=== PATIENT | male | born 1995 | race Two or more races ===

== ENCOUNTER 2020-08-25 11:12 | Emergency (ER) | payer SELFPAY ==
--- NOTE | 2020-08-25 11:52 | EDM.PDOC ---
ED HPI GENERAL MEDICAL PROBLEM - General Chief Complaint: Abdominal Pain Stated Complaint: ABDOMINAL PAIN Time Seen by Provider: 08/25/20 11:32 Source of Information: Reports: Patient, RN Notes Reviewed History Limitations: Reports: No Limitations - History of Present Illness INITIAL COMMENTS - FREE TEXT/NARRATIVE: Patient is a 25-year-old male who presents to the ER for evaluation of his abdomen pain. Notes that this started around 5 AM this morning after he woke up.. He is not really sure if he had a fever. The pain was in his lower abdomen this morning, but now has worked up to his right upper quadrant. States that the pain was kind of intermittent, and is better now. But he did take some ibuprofen before coming here. He states that he has had 5 episodes of diarrhea this morning, but has had no nausea or vomiting, he is also had no dysuria, frequency or urgency. He is not had pain like this before ever. He has had no abdomen surgeries, takes no daily medications, and notes that he is a fairly healthy gentleman. He also states that he has no primary care provider. Abdominal Pain Score (Numeric/FACES): 2 - Related Data Allergies Allergy/AdvReac Type Severity Reaction Status Date / Time No Known Allergies Allergy Verified 08/25/20 11:32 Home Meds: Home Meds . [No Known Home Meds] 08/25/20 [History] Past Medical History - Past Health History Medical/Surgical History: Denies Medical/Surgical History - Infectious Disease History Infectious Disease History: Reports: Novel Coronavirus Social & Family History - Tobacco Use Tobacco Use Status *Q: Never Tobacco User Second Hand Smoke Exposure: No - Caffeine Use Caffeine Use: Reports: Coffee, Soda - Alcohol Use Days Per Week of Alcohol Use: 1 Number of Drinks Per Day: 1 Total Drinks Per Week: 1 - Recreational Drug Use Recreational Drug Use: No ED ROS GENERAL - Review of Systems Review Of Systems: Comprehensive ROS is negative, except as noted in HPI. ED EXAM, GI/ABD - Physical Exam Exam: See Below Exam Limited By: No Limitations General Appearance: Alert, WD/WN, No Apparent Distress Respiratory/Chest: No Respiratory Distress, Lungs Clear, Normal Breath Sounds, No Accessory Muscle Use, Chest Non-Tender Cardiovascular: Normal Peripheral Pulses, Regular Rate, Rhythm, No Edema GI/Abdominal Exam: Normal Bowel Sounds, Soft, No Distention, No Mass, Tender (RUQ; sandra sign positive, RLQ mild tenderness with no rebound) Extremities: Normal Inspection, Normal Capillary Refill Neurological: Alert, Oriented, Normal Cognition, No Motor/Sensory Deficits Psychiatric: Normal Affect, Normal Mood Skin Exam: Warm, Dry, Intact, Normal Color, No Rash Course - Vital Signs Last Recorded V/S: Last Vital Signs Temp 97.3 F 08/25/20 11:31 Pulse 61 08/25/20 11:31 Resp 18 08/25/20 11:31 BP 136/78 08/25/20 11:31 Pulse Ox 99 08/25/20 11:31 - Orders/Labs/Meds Orders: Active Orders 24 hr Category Date Time Status Peripheral IV Care [RC] . DIRECTED Care 08/25/20 11:50 Ordered Iopamidol [Isovue-300 (61%)] Med 08/25/20 12:58 Once 100 ml IVPUSH ONETIME ONE Sodium Chloride 0.9% [Saline Flush] Med 08/25/20 11:48 Ordered 10 ml FLUSH ASDIRECTED PRN Peripheral IV Insertion Adult [OM.PC] Routine Oth 08/25/20 11:48 Ordered Medication Orders Iopamidol (Iopamidol 612 Mg/Ml 100 Ml Bottle) 100 ml IVPUSH ONETIME ONE Stop: 08/25/20 12:59 Last Admin: 08/25/20 13:13 Dose: 100 ml Documented by: KAROLINA Sodium Chloride (Sodium Chloride 0.9% 10 Ml Syringe) 10 ml FLUSH ASDIRECTED PRN PRN Reason: Keep Vein Open Last Admin: 08/25/20 13:14 Dose: 10 ml Documented by: Admin: 08/25/20 12:02 Dose: 10 ml Documented by: WALLACE Labs: Laboratory Tests 08/25/20 08/25/20 08/25/20 Range/Units 11:48 11:48 12:38 WBC 6.81 (4.23-9.07) K/mm3 RBC 5.36 (4.63-6.08) M/mm3 Hgb 16.3 (13.7-17.5) gm/dl Hct 47.0 (40.1-51.0) % MCV 87.7 (79.0-92.2) fl MCH 30.4 (25.7-32.2) pg MCHC 34.7 (32.2-35.5) g/dl RDW Std Deviation 42.8 (35.1-43.9) fL Plt Count 208 (163-337) K/mm3 MPV 12.3 (9.4-12.3) fl Neutrophils % (Manual) 51 (40-60) % Band Neutrophils % 0 (0-10) % Lymphocytes % (Manual) 33 (20-40) % Atypical Lymphs % 0 % Monocytes % (Manual) 9 (2-10) % Eosinophils % (Manual) 5 (0.8-7.0) % Basophils % (Manual) 2 H (0.2-1.2) Platelet Estimate Adequate Plt Morphology Comment Normal RBC Morph Comment Normal Sodium 141 (136-145) mEq/L Potassium 4.3 (3.5-5.1) mEq/L Chloride 104 (98-107) mEq/L Carbon Dioxide 28 (21-32) mEq/L Anion Gap 13.3 (5-15) BUN 19 H (7-18) mg/dL Creatinine 1.1 (0.7-1.3) mg/dL Est Cr Clr Drug Dosing 115.56 mL/min Estimated GFR (MDRD) > 60 (>60) mL/min BUN/Creatinine Ratio 17.3 (14-18) Glucose 102 H (70-99) mg/dL Calcium 9.3 (8.5-10.1) mg/dL Total Bilirubin 0.5 (0.2-1.0) mg/dL AST 23 (15-37) U/L ALT 24 (16-63) U/L Alkaline Phosphatase 85 (46-116) U/L C-Reactive Protein <0.2 (<1.0) mg/dL Total Protein 8.2 (6.4-8.2) g/dl Albumin 4.4 (3.4-5.0) g/dl Globulin 3.8 gm/dL Albumin/Globulin Ratio 1.2 (1-2) Lipase 55 L (73-393) U/L Urine Color Yellow (Yellow) Urine Appearance Clear (Clear) Urine pH 6.0 (5.0-8.0) Ur Specific [place] 1.025 (1.005-1.030) Urine Protein Negative (Negative) Urine Glucose (UA) Negative (Negative) Urine Ketones Negative (Negative) Urine Occult Blood Negative (Negative) Urine Nitrite Negative (Negative) Urine Bilirubin Negative (Negative) Urine Urobilinogen 0.2 (0.2-1.0) Ur Leukocyte Esterase Negative (Negative) Urine RBC Not seen (0-5) /hpf Urine WBC 0-5 (0-5) /hpf Ur Epithelial Cells 0-5 (0-5) /hpf Urine Bacteria Rare (FEW) /hpf Urine Mucus Not seen (FEW) /hpf Meds: Medications Generic Name Dose Route Start Last Admin Trade Name Atifq PRN Reason Stop Dose Admin Iopamidol 100 ml 08/25/20 12:58 08/25/20 13:13 Iopamidol 612 Mg/Ml 100 Ml Bottle IVPUSH 08/25/20 12:59 100 ml ONETIME ONE Administration Sodium Chloride 10 ml 08/25/20 11:48 08/25/20 13:14 Sodium Chloride 0.9% 10 Ml Syringe FLUSH 10 ml ASDIRECTED PRN Administration Keep Vein Open - Re-Assessments/Exams Free Text/Narrative Re-Assessment/Exam: 08/25/20 12:01 Patient presents to the ED for his abdomen pain, will get IV started, get basic labs and an abdomen/pelvis CT with IV and oral contrast. 08/25/20 13:47 Patient's laboratory evaluation demonstrates no focal abnormalities, the patient's CT also is without acute findings. At this point in time we will go ahead and discharge the patient home with general recommendations and it looks like he might have just some diarrhea to deal with over the next 3 days. We will stick him on a clear liquid diet and have him follow-up on Thursday if not much better return to the ER if symptoms worsen over the weekend. Departure - Departure Time of Disposition: 13:48 Disposition: Home, Self-Care 01 Condition: Good Clinical Impression: Abdominal pain Qualifiers: Abdominal location: generalized Qualified Code(s): R10.84 - Generalized abdominal pain Diarrhea Qualifiers: Diarrhea type: unspecified type Qualified Code(s): R19.7 - Diarrhea, unspecified - Discharge Information *PRESCRIPTION DRUG MONITORING PROGRAM REVIEWED*: No *COPY OF PRESCRIPTION DRUG MONITORING REPORT IN PATIENT RITESH: No Instructions: Food Choices to Help Relieve Diarrhea, Adult, Abdominal Pain, Adult, [id number] Referrals: PCP,None [Primary Care Provider] - Forms: ED Department Discharge Additional Instructions: You have been evaluated in the ED for diarrhea/abdominal pain. Operatory evaluation and CT demonstrated no focal abnormalities to suggest a ba cterial source of your abdomen pain, your gallbladder was seen and has no stones or no infectious process near it, appendix was seen and also has no sort of infectious process noted. Over the next 24-48 hours please try to limit diet to clear liquids and advance as tolerated to a bland diet to alleviate symptoms of diarrhea. You may try an [id number] antidiarrheal like loperamide for ongoing management of your diarrhea. Please take per typists supervisor instructions on the back of the box. You may also use 600 mg ibuprofen every 6 hours as needed for ongoing pain management. Do not exceed 3200 mg ibuprofen in a 24-hour time span. If symptoms are getting better over the next few days, you do not need to follow-up for further management however if things are not getting much better, for example you are not able to keep any sort of food or fluids down by mouth, or you develop a fever, or worsening right lower quadrant pain, do not hesitate to return to the ER for further evaluation. Please return to the ED if your symptoms should change or worsen. Sepsis Event Note (ED) - Evaluation Sepsis Screening Result: No Definite Risk - Focused Exam Vital Signs: Vital Signs Temp Pulse Resp BP Pulse Ox 08/25/20 11:31 97.3 F 61 18 136/78 99 - My Orders Last 24 Hours: My Active Orders 08/25/20 11:48 Sodium Chloride 0.9% [Saline Flush] 10 ml FLUSH ASDIRECTED PRN Peripheral IV Insertion Adult [OM.PC] Routine 08/25/20 11:50 Peripheral IV Care [RC] . DIRECTED 08/25/20 12:58 Iopamidol [Isovue-300 (61%)] 100 ml IVPUSH ONETIME ONE - Assessment/Plan Last 24 Hours: My Active Orders 08/25/20 11:48 Sodium Chloride 0.9% [Saline Flush] 10 ml FLUSH ASDIRECTED PRN Peripheral IV Insertion Adult [OM.PC] Routine 08/25/20 11:50 Peripheral IV Care [RC] . DIRECTED 08/25/20 12:58 Iopamidol [Isovue-300 (61%)] 100 ml IVPUSH ONETIME ONE
[2020-08-25] MEDS: Sodium Chloride 0.9% 10 ML Syringe FLUSH PRN ×2 (12:02→13:14)
[2020-08-25] MEDS ORDERED: Iopamidol 612 MG/ML 100 ML Bottle IVPUSH ONE (12:58)
--- NOTE | 2020-08-25 13:33 | CT ---
CT abdomen and pelvis Technique: Multiple axial sections were obtained from above the dome of the diaphragm inferiorly through the pubic symphysis. Intravenous and oral contrast was utilized. Delayed images were also obtained through the bladder. Reconstructed coronal and sagittal images were obtained. Comparison: No prior abdominal imaging is available. Findings: Visualized lung bases show nothing acute. Liver shows no focal parenchymal abnormality. Spleen appears normal in size. Adrenal glands show no nodule. No abnormality is appreciated within the pancreas. Kidneys show symmetric contrast enhancement. No hydronephrosis or mass is seen within the kidneys. Delayed images show contrast within the distal ureters and the bladder. Abdominal aorta shows no aneurysm. No retroperitoneal adenopathy or mesenteric abnormalities are seen. Appendix is seen which is normal in size. No pelvic mass or adenopathy is seen. No free fluid or inflammatory change is appreciated. Bone window settings were reviewed which show a unilateral spondylolytic defect on the left side at L5-S1. Other portions of the visualized osseous structures are within normal limits. Impression: 1. 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 2. Nothing acute is appreciated on CT study of the abdomen and pelvis. No etiology is identified to explain the patient's right lower quadrant pain. Diagnostic code #2
== END 2020-08-25 14:00 | disposition home or self-care (01) ==
LOC: JD.ED 11:12
DX: R10.84 Generalized abdominal pain (principal); R19.7 Diarrhea, unspecified
CPT/HCPCS: 36415; 74177; 80053; 81001; 83690; 85007; 85027; 86140; 99284; Q9967